=== PATIENT | male | born 1970 | race African-American/Black ===

== ENCOUNTER 2017-02-17 16:24 | Emergency (ER) | payer OTHER ==
[~2017-02-17] VITALS: Ht 190.5 cm; Wt 82.7 kg
[~2017-02-17 16:24] MED LIST: ALBUTEROL SULF8.5 GM IH; ALEVE220 M2 PO; ALEVE220 MG PO; ASPIR-LOW81 MG PO; Aspirin E.C. PO; Celexa PO; DIVALPROEX SOD250 MG PO; ENDOCET 5-3251 EACH PO; FLUOXETINE HCL20 MG PO; LISINOPRIL5 MG PO; LOPRESSOR25 MG PO; MEDROL DOSEPAK4 MG PO; MOTRIN600 MG PO; PROAIR HFA8.5 GM IH; PROZAC10 MG PO; VITAMIN D31000 UNI2 PO; seroquel
[2017-02-17 17:03] LABS: HEMATOCRIT 45.4 % (38.0-50.0); MCH 30.2 PG (29.0-34.0); MCHC 35.5 G/DL (30.0-36.0); MCV 85.2 FL (86-99); MEAN PLAT.VOLUME 11.6 uM^3 (9.0-12.4); PLATELET COUNT 211 K/uL (156-360); RBC DIS.WIDTH-SD 40.3 % (39-53); RED BLOOD COUNT 5.33 M/uL (4.00-5.50); WHITE BLOOD COUNT 10.2 K/uL (4.1-10.2)
[2017-02-17 17:11] LABS: CHLORIDE 104 mEq/L (99-109); POTASSIUM 3.7 mEq/L (3.7-5.4); SODIUM 136 mEq/L (136-147)
[2017-02-17 17:14] LABS: GLUCOSE 92 mg/dL (70-99)
[2017-02-17 17:15] LABS: ANION GAP 10 MEQ/L (2-14)
[2017-02-17 17:16] LABS: TOTAL BILIRUBIN 0.4 mg/dL (0.0-1.0)
[2017-02-17 17:17] LABS: ALKALINE PHOSPHATASE 59 IU/L (3-129); GFR ESTIMATE (CALCULATED) > 59 mL/min/ (58.99-99999)
[2017-02-17 17:18] LABS: UREA NITROGEN (BUN) 19 mg/dL (9-23)
[2017-02-17 18:15] VITALS: BP 133/87
== END 2017-02-17 19:17 | disposition home or self-care (01) ==
LOC: EME 16:24 → TRA 16:24
PROVIDERS: Emergency Medicine
DX: M25.511 Pain in right shoulder (principal); M79.601 Pain in right arm; M25.551 Pain in right hip; M25.561 Pain in right knee; R51 Headache; W17.89XA Other fall from one level to another, initial encounter; Y93.H9 Activity, other involving exterior property and land maintenance, building and construction; Y92.008 Other place in unspecified non-institutional (private) residence as the place of occurrence of the external cause; R11.0 Nausea; I10 Essential (primary) hypertension; J45.909 Unspecified asthma, uncomplicated; F43.10 Post-traumatic stress disorder, unspecified; F17.200 Nicotine dependence, unspecified, uncomplicated; Z88.6 Allergy status to analgesic agent
CPT/HCPCS: 70450; 71010; 71260; 72125; 73030; 73060; 73090; 73502; 73552; 73560; 74177; 80053; 85027; 86850; 86900; 86901; 99281; 99284; J2405; J7030